=== PATIENT | female | born 1940 | race Caucasian/White ===

== ENCOUNTER 2021-12-11 11:15 | Outpatient (RCR) | payer OTHER, SELFPAY ==
--- NOTE | 2021-12-09 10:30 | PT.OIE ---
Current Diagnoses Dizziness and giddiness (12/09/21) History of falling (12/09/21) Visit Care Team Role Provider Type Sea Hicks DO Family Provider Non-Staff Primary Care Provider Specialty: Family Practice Address: [address] [place] [address], [phone] Email: Alfredo Yeboah MD Attending Provider Physician Referring Provider Specialty: Ear, Nose, Throat Address: [address] [place] [address], [id number] Email: [email or web address] Physical Therapy Initial Evaluation PT-OP-A Visit Information Start: 12/09/21 08:14 Freq: Status: Active Protocol: Document 12/09/21 10:18 AMB (Rec: 12/09/21 11:06 AMB [id number]) Out-Patient Physical Therapy Visit Information Visit Information Visit Type Initial Evaluation Visit Start Time 10:30 Visit Stop Time 11:15 Total Visit Minutes 45 Visit Number 1 PT-OP-B Current Condition Start: 12/09/21 08:14 Freq: Status: Active Protocol: Document 12/09/21 10:18 AMB (Rec: 12/09/21 11:06 AMB [id number]) Current Condition History of Current Condition Onset Date 6 months Current Complaints dizziness History of Current Condition Pt reports dizziness. Does show B arm tremor and festinating gait especially when walking through doorways. Does report seeing neurology but not currently on medication because had nightmares on it, and stopped going to see the neurologist. 3 falls in the last 6 months, not spinning as much now as she used to. Uses 4WW in the house, attends PT with a SPC. Lives alone, but son drove her today. Lives in a mobile home- 2 stairs to enter with a railing. Difficulty saying what causes dizziness. Getting up in the middle of the night sometimes. Verbalizes instances of freezing. Insulin is new to the patient. Treatment Goals Patient/Caregiver Goals Be more stable with mobility Prior Functional Status Baseline Function- ADL's Independent Baseline Function- Mobility Independent Personal Factors Other Personal Factors That May Effect Movement disorder symptoms Therapy/Recovery similar to Parkinsonism but not currently medicated: bilateral tremor, festinating gait, almost freezing symptoms , difficulty with memory seen at evaluation but not formally assessed. Glaucoma, HTN, hypothyroid, cardiac surgery history (3 stents). PT-OP-C Subjective Start: 12/09/21 08:14 Freq: Status: Active Protocol: Document 12/09/21 10:30 AMB (Rec: 12/09/21 13:01 AMB [id number]) Patient Questionnaires Dizziness Handicap Inventory DHI Score 34 DHI Functional Impairment 20 to 39% Impaired (Score 20- 39) PT-OP-E Functional Tests Start: 12/09/21 08:14 Freq: Status: Active Protocol: Document 12/09/21 10:30 AMB (Rec: 12/09/21 16:01 AMB [id number]) Functional Tests Dynamic Gait Index (DGI) Score 13 DGI Impairment Rating 40 to <60% Impaired (Score 10- 14) PT-OP-G Mobility & Gait Start: 12/09/21 08:14 Freq: Status: Active Protocol: Document 12/09/21 10:30 AMB (Rec: 12/09/21 16:01 AMB [id number]) OP Gait Assessment Comments Gait Comments Pt attends PT ambulating with SPC. When cued to walk fast she walks well, good step length, but when she walks around objects, walks backwards, or walks through doorways she has a shuffling gait pattern, almost freezing when walking through doorway, but was able to step over small adalberto with concentration. PT-OP-O Vestibular Start: 12/09/21 08:14 Freq: Status: Active Protocol: Document 12/09/21 10:30 AMB (Rec: 12/09/21 13:01 AMB [id number]) Vestibular Assessment Positional Testing [place]-Hallpike Negative Left,Negative Right Rolling Test Negative Left,Negative Right PT-OP-T Assessment and Plan Start: 12/09/21 08:14 Freq: Status: Active Protocol: Document 12/09/21 10:30 AMB (Rec: 12/09/21 16:01 AMB [id number]) Physical Therapy Assessment Rehab Potential Rehabilitation Potential Good Evaluation Complexity Number of Personal Factors/Comorbidities 3 or More Number of Body Systems Impaired 4 or More Clinical Presentation at Evaluation Evolving Impairments Impairments Balance,Functional Activities, Functional Mobility,Gait, Transfers Goals Three Impairment Safety Short Term Goal (STG) Keyonna will back up to a chair and sit down without freezing /festinating gait. STG Duration 4 weeks Marker Assembler Goal (LTG) Keyonna will ascend and descend 3 stairs with one rail with step to gait safely. LTG Duration 8 weeks Two Impairment Transfers Short Term Goal (STG) Keyonna will perform a supine to stand transfer to get out of bed without loss of balance . STG Duration 4 weeks One Impairment Gait Short Term Goal (STG) Keyonna will improve her DGI score to 18/24 or greater to show reduced risk of falling. STG Duration 4 weeks Marker Assembler Goal (LTG) Keyonna will ambulate with her SPC for 6 minutes without loss of balance. LTG Duration 8 weeks Assessment Summary Assessment Keyonna attends PT for dizziness. She specifically states it is not a nauseous or spinning dizziness. She does endorse at least 3 falls in the last 6 months. She states specifically that she does not have Parkinson's, but does state she was seen by a neurologist who put her on what sounds like carbidopa/ levodopa but she had night terrors on it and self d/jessika it and has not yet been back to see the neurologist. Her DGI score of 13/24 puts her at a high fall risk, as does her history of falling which sounds like is precipitated by an almost freezing episode. She did not have any signs of BPPV with supine roll testing or Channing-Hallpike testing. Further physical therapy will work on balance and fall reduction, as well as further evaluation of her mobility and falls. She was also encouraged to return to her PCP/neurologist for further neurological motor work up. Physical Therapy Plan Frequency and Duration Frequency of Treatment 2x/Week Duration of Treatment 8 weeks Plan of Care Start Date 12/09/21 Plan of Care End Date 02/03/22 Therapeutic Interventions Therapeutic Interventions Balance Training,Gait Training ,Home Exercise Program,Manual Therapy,Neuromuscular Re- education,Therapeutic Activities,Therapeutic Exercises,Vestibular Rehabilitation Next Visit Focus/Plan Next Note Type Treatment Note Next Visit Plan check foot sensation (diabetic ), check orthostatics (dizzy when getting up out of bed at night), Start working on amplitude of movement, safety with stairs, backing up to a chair safety
--- NOTE | 2021-12-09 13:27 | PT.OPPOC ---
Physical, Occupational & Speech Therapy At [facility] Current Diagnoses Dizziness and giddiness (12/09/21) History of falling (12/09/21) Visit Care Team Role Provider Type Sea Hicks DO Family Provider Non-Staff Primary Care Provider Specialty: Family Practice Address: [address] [place] [address], [phone] Email: Alfredo Yeboah MD Attending Provider Physician Referring Provider Specialty: Ear, Nose, Throat Address: [address] [place] [address], [id number] Email: [email or web address] Plan Of Care PT-OP-T Assessment and Plan Start: 12/09/21 08:14 Freq: Status: Active Protocol: Document 12/09/21 10:30 AMB (Rec: 12/09/21 16:01 AMB [id number]) Physical Therapy Assessment Rehab Potential Rehabilitation Potential Good Evaluation Complexity Number of Personal Factors/Comorbidities 3 or More Number of Body Systems Impaired 4 or More Clinical Presentation at Evaluation Evolving Impairments Impairments Balance,Functional Activities, Functional Mobility,Gait, Transfers Goals Three Impairment Safety Short Term Goal (STG) Keyonna will back up to a chair and sit down without freezing /festinating gait. STG Duration 4 weeks Mcc Goal (LTG) Keyonna will ascend and descend 3 stairs with one rail with step to gait safely. LTG Duration 8 weeks Two Impairment Transfers Short Term Goal (STG) Keyonna will perform a supine to stand transfer to get out of bed without loss of balance . STG Duration 4 weeks One Impairment Gait Short Term Goal (STG) Keyonna will improve her DGI score to 18/24 or greater to show reduced risk of falling. STG Duration 4 weeks Plumber Helper Goal (LTG) Keyonna will ambulate with her SPC for 6 minutes without loss of balance. LTG Duration 8 weeks Assessment Summary Assessment Keyonna attends PT for dizziness. She specifically states it is not a nauseous or spinning dizziness. She does endorse at least 3 falls in the last 6 months. She states specifically that she does not have Parkinson's, but does state she was seen by a neurologist who put her on what sounds like carbidopa/ levodopa but she had night terrors on it and self d/jessika it and has not yet been back to see the neurologist. Her DGI score of 13/24 puts her at a high fall risk, as does her history of falling which sounds like is precipitated by an almost freezing episode. She did not have any signs of BPPV with supine roll testing or [place]-Hallpike testing. Further physical therapy will work on balance and fall reduction, as well as further evaluation of her mobility and falls. She was also encouraged to return to her PCP/neurologist for further neurological motor work up. Physical Therapy Plan Frequency and Duration Frequency of Treatment 2x/Week Duration of Treatment 8 weeks Plan of Care Start Date 12/09/21 Plan of Care End Date 02/03/22 Therapeutic Interventions Therapeutic Interventions Balance Training,Gait Training ,Home Exercise Program,Manual Therapy,Neuromuscular Re- education,Therapeutic Activities,Therapeutic Exercises,Vestibular Rehabilitation Next Visit Focus/Plan Next Note Type Treatment Note Next Visit Plan check foot sensation (diabetic ), check orthostatics (dizzy when getting up out of bed at night), Start working on amplitude of movement, safety with stairs, backing up to a chair safety Plan of Care Dates Plan of Care Start Date 12/09/21 Plan of Care End Date 02/03/22 Electronically Signed by: Gypsy Escobar, PT 12/10/21 0466 Please Sign and Return: I have reviewed this Plan of Care and certify that the skilled therapy services above are required to meet the patient?s needs. Physician Signature Date Printed Name and Credentials Clinical Instructor Signature Printed Name and Credentials
--- NOTE | 2021-12-11 13:19 | PT.OTN ---
Current Diagnoses Dizziness and giddiness (12/11/21) History of falling (12/11/21) Physical Therapy Treatment Note PT-OP-A Visit Information Start: 12/09/21 08:14 Freq: Status: Active Protocol: Document 12/11/21 11:15 AMB (Rec: 12/11/21 13:18 AMB [id number]) Out-Patient Physical Therapy Visit Information Visit Information Visit Type Treatment Note Visit Start Time 11:15 Visit Stop Time 12:00 Total Visit Minutes 45 Visit Number 2 PT-OP-B Current Condition Start: 12/09/21 08:14 Freq: Status: Active Protocol: Document 12/09/21 10:18 AMB (Rec: 12/09/21 11:06 AMB [id number]) Current Condition History of Current Condition Onset Date 6 months Current Complaints dizziness History of Current Condition Pt reports dizziness. Does show B arm tremor and festinating gait especially when walking through doorways. Does report seeing neurology but not currently on medication because had nightmares on it, and stopped going to see the neurologist. 3 falls in the last 6 months, not spinning as much now as she used to. Uses 4WW in the house, attends PT with a SPC. Lives alone, but son drove her today. Lives in a mobile home- 2 stairs to enter with a railing. Difficulty saying what causes dizziness. Getting up in the middle of the night sometimes. Verbalizes instances of freezing. Insulin is new to the patient. Treatment Goals Patient/Caregiver Goals Be more stable with mobility Prior Functional Status Baseline Function- ADL's Independent Baseline Function- Mobility Independent Personal Factors Other Personal Factors That May Effect Movement disorder symptoms Therapy/Recovery similar to Parkinsonism but not currently medicated: bilateral tremor, festinating gait, almost freezing symptoms , difficulty with memory seen at evaluation but not formally assessed. Glaucoma, HTN, hypothyroid, cardiac surgery history (3 stents). PT-OP-C Subjective Start: 12/09/21 08:14 Freq: Status: Active Protocol: Document 12/11/21 11:15 AMB (Rec: 12/11/21 13:18 AMB [id number]) OP-PT Subjective Patient Comments Patient Comments Pt reports she had dizziness when her son was driving her home on Tuesday, otherwise is doing ok. PT-OP-E Functional Tests Start: 12/09/21 08:14 Freq: Status: Active Protocol: Document 12/09/21 10:30 AMB (Rec: 12/09/21 16:01 AMB [id number]) Functional Tests Dynamic Gait Index (DGI) Score 13 DGI Impairment Rating 40 to <60% Impaired (Score 10- 14) PT-OP-G Mobility & Gait Start: 12/09/21 08:14 Freq: Status: Active Protocol: Document 12/09/21 10:30 AMB (Rec: 12/09/21 16:01 AMB [id number]) OP Gait Assessment Comments Gait Comments Pt attends PT ambulating with SPC. When cued to walk fast she walks well, good step length, but when she walks around objects, walks backwards, or walks through doorways she has a shuffling gait pattern, almost freezing when walking through doorway, but was able to step over small adalberto with concentration. PT-OP-O Vestibular Start: 12/09/21 08:14 Freq: Status: Active Protocol: Document 12/09/21 10:30 AMB (Rec: 12/09/21 13:01 AMB [id number]) Vestibular Assessment Positional Testing Protem-Hallpike Negative Left,Negative Right Rolling Test Negative Left,Negative Right PT-OP-Q Treatments Start: 12/09/21 08:14 Freq: Status: Active Protocol: Document 12/11/21 11:15 AMB (Rec: 12/11/21 13:18 AMB [id number]) Neuro Re-Education Treatment Balance Activities Lateral stepping Details Chair for UE support Reps/Duration working on amplitude, UE movement Fwd stepping Details Chair for UE support Reps/Duration 10 Comments heavy cues for coordination Other Activities 1 Details Rechecked DixHallpike due to increased dizziness Comments pt again denies spinning dizziness but does report dizziness PT-OP-T Assessment and Plan Start: 12/09/21 08:14 Freq: Status: Active Protocol: Document 12/11/21 11:15 AMB (Rec: 12/11/21 13:18 AMB [id number]) Physical Therapy Assessment Goals Three Impairment Safety Short Term Goal (STG) Keyonna will back up to a chair and sit down without freezing /festinating gait. STG Duration 4 weeks Value Analysis Coordinator Goal (LTG) Keyonna will ascend and descend 3 stairs with one rail with step to gait safely. LTG Duration 8 weeks Two Impairment Transfers Short Term Goal (STG) Keyonna will perform a supine to stand transfer to get out of bed without loss of balance . STG Duration 4 weeks One Impairment Gait Short Term Goal (STG) Keyonna will improve her DGI score to 18/24 or greater to show reduced risk of falling. STG Duration 4 weeks Senior Care Goal (LTG) Keyonna will ambulate with her SPC for 6 minutes without loss of balance. LTG Duration 8 weeks Assessment Summary Assessment 154/77 seated, 146/70 standing . No dizziness with orthostatic check, but didn't check in supine. Pt had excellent light touch sensation throughout her bilateral feet. Started stepping/coordination exercises. Pt states blood sugars have been around 100 when she wakes up. Rechecked DixHallpike and again negative for any nystagmus. Physical Therapy Plan Next Visit Focus/Plan Next Note Type Treatment Note Next Visit Plan Start working on amplitude of movement, safety with stairs, backing up to a chair safety
--- NOTE | 2021-12-31 09:37 | PT-OP ANOTE ---
No show- called patient and left message asking her to call us back.
--- NOTE | 2022-01-06 08:10 | PT-OP ANOTE ---
Pt cancelled appt this am <24 hrs, has cardiology appt same time.
--- NOTE | 2022-01-12 13:08 | PT.OPDS ---
Current Diagnoses Dizziness and giddiness (12/11/21) History of falling (12/11/21) Visit Care Team Role Provider Type Sea Hicks DO Family Provider Non-Staff Primary Care Provider Specialty: Family Practice Address: [address] [place] [address], [phone] Email: Alfredo Yeboah MD Attending Provider Physician Referring Provider Specialty: Ear, Nose, Throat Address: [address] [place] [address], [phone] Email: [email or web address] Visit Number Visit Number 2 Discharge Summary PT-OP-B Current Condition Start: 12/09/21 08:14 Freq: Status: Active Protocol: Document 12/09/21 10:18 AMB (Rec: 12/09/21 11:06 AMB [id number]) Current Condition History of Current Condition Onset Date 6 months Current Complaints dizziness History of Current Condition Pt reports dizziness. Does show B arm tremor and festinating gait especially when walking through doorways. Does report seeing neurology but not currently on medication because had nightmares on it, and stopped going to see the neurologist. 3 falls in the last 6 months, not spinning as much now as she used to. Uses 4WW in the house, attends PT with a SPC. Lives alone, but son drove her today. Lives in a mobile home- 2 stairs to enter with a railing. Difficulty saying what causes dizziness. Getting up in the middle of the night sometimes. Verbalizes instances of freezing. Insulin is new to the patient. Treatment Goals Patient/Caregiver Goals Be more stable with mobility Prior Functional Status Baseline Function- ADL's Independent Baseline Function- Mobility Independent Personal Factors Other Personal Factors That May Effect Movement disorder symptoms Therapy/Recovery similar to Parkinsonism but not currently medicated: bilateral tremor, festinating gait, almost freezing symptoms , difficulty with memory seen at evaluation but not formally assessed. Glaucoma, HTN, hypothyroid, cardiac surgery history (3 stents). PT-OP-C Subjective Start: 12/09/21 08:14 Freq: Status: Active Protocol: Document 12/11/21 11:15 AMB (Rec: 12/11/21 13:18 AMB [id number]) OP-PT Subjective Patient Comments Patient Comments Pt reports she had dizziness when her son was driving her home on Tuesday, otherwise is doing ok. PT-OP-E Functional Tests Start: 12/09/21 08:14 Freq: Status: Active Protocol: Document 12/09/21 10:30 AMB (Rec: 12/09/21 16:01 AMB [id number]) Functional Tests Dynamic Gait Index (DGI) Score 13 DGI Impairment Rating 40 to <60% Impaired (Score 10- 14) PT-OP-G Mobility & Gait Start: 12/09/21 08:14 Freq: Status: Active Protocol: Document 12/09/21 10:30 AMB (Rec: 12/09/21 16:01 AMB [id number]) OP Gait Assessment Comments Gait Comments Pt attends PT ambulating with SPC. When cued to walk fast she walks well, good step length, but when she walks around objects, walks backwards, or walks through doorways she has a shuffling gait pattern, almost freezing when walking through doorway, but was able to step over small adalberto with concentration. PT-OP-O Vestibular Start: 12/09/21 08:14 Freq: Status: Active Protocol: Document 12/09/21 10:30 AMB (Rec: 12/09/21 13:01 AMB [id number]) Vestibular Assessment Positional Testing [place]-Hallpike Negative Left,Negative Right Rolling Test Negative Left,Negative Right PT-OP-T Assessment and Plan Start: 12/09/21 08:14 Freq: Status: Active Protocol: Document 01/12/22 13:06 AMB (Rec: 01/12/22 13:08 AMB [id number]) Physical Therapy Assessment Goals Three Impairment Safety Short Term Goal (STG) Keyonna will back up to a chair and sit down without freezing /festinating gait. STG Duration 4 weeks [facility] Goal (LTG) Keyonna will ascend and descend 3 stairs with one rail with step to gait safely. LTG Duration 8 weeks Two Impairment Transfers Short Term Goal (STG) Keyonna will perform a supine to stand transfer to get out of bed without loss of balance . STG Duration 4 weeks One Impairment Gait Short Term Goal (STG) Keyonna will improve her DGI score to 18/24 or greater to show reduced risk of falling. STG Duration 4 weeks Complaint Supervisor Goal (LTG) Keyonna will ambulate with her SPC for 6 minutes without loss of balance. LTG Duration 8 weeks Assessment Summary Assessment Keyonna attended PT for 2 visits. She was negative for BPPV, didn't have outright sx with orthostatic check. Has since cancelled or no showed all appointments. Would recommend PT for Parkinsons like symptoms in the future when she is ready for that. Physical Therapy Plan Discharge Physical Therapy Discharge Reasons No Longer Attending PT
== END 2022-01-13 14:22 | disposition home or self-care (01) ==
LOC: PHYS 11:15
PROVIDERS: Family Provider Family Medicine; PCP Family Medicine; Referring Provider Otolaryngology; Visit Provider Otolaryngology
DX: R42 Dizziness and giddiness (principal); Z91.81 History of falling
CPT/HCPCS: 97112; 97162

== ENCOUNTER → 2022-01-07 10:31 | Outpatient (CLI) | payer OTHER, SELFPAY ==
[2022-01-07 11:18] LABS: Hematocrit 37.7 % (36-46); Hemoglobin 12.7 g/dL (12.0-16.0); Mean Corpuscular HGB Conc 33.6 % (30-36); Mean Corpuscular Hemoglobin 30.6 PG (26-34); Platelet Count 216 X10^3/uL (150-400); Red Blood Cell Count 4.14 X10^6/uL (4.0-5.2); Red Cell Distribution Width 14.2 % (11.6-14.8); White Blood Cell Count 9.8 X10^3/uL (4.5-11.0)
[2022-01-07 11:29] LABS: Hemoglobin A1C% w Est Avg Glu 7.9 % (4.0-6.0)
[2022-01-07 11:34] LABS: Alanine Aminotransferase 20 IU/L (<35); Albumin 4.6 g/dL (3.5-5.0); Albumin Globulin Ratio 1.3 (1.0-2.8); Alkaline Phosphatase 89 U/L (38-126); Aspartate Aminotransferase 28 IU/L (14-36); Bilirubin Total 0.6 mg/dL (0.2-1.3); Blood Urea Nitrogen 38 mg/dL (7-17); Calcium 9.7 mg/dL (8.4-10.2); Carbon Dioxide 31 mmol/L (22-32); Chloride 101 mmol/L (98-107); Estimated Glomerular Filt Rate 56 mL/min (>60); Globulin 3.5 g/dL (1.7-4.1); Glucose 206 mg/dL (80-110); HEMOLYSIS < 15 (0-50); Potassium 4.2 mmol/L (3.4-5.1); Sodium 140 mmol/L (137-145); Total Protein 8.1 g/dL (6.3-8.2)
[2022-01-07 12:04] LABS: Thyroid Stimulating Hormone 1.81 uIU/mL (0.47-4.68)
== END ==
PROVIDERS: Family Provider Family Medicine; PCP Internal Medicine; Referring Provider Nurse Practitioner; Visit Provider Nurse Practitioner
DX: I10 Essential (primary) hypertension (principal); E11.9 Type 2 diabetes mellitus without complications; I48.0 Paroxysmal atrial fibrillation; I25.10 Atherosclerotic heart disease of native coronary artery without angina pectoris; R42 Dizziness and giddiness
CPT/HCPCS: 36415; 80053; 83036; 84443; 85027

== ENCOUNTER → 2022-02-20 10:40 | Outpatient (CLI) | payer OTHER, SELFPAY ==
--- NOTE | 2022-02-20 10:43 | DI.MRI.S_ITS ---
PROCEDURE: MR HEAD/BRAIN WO CON INDICATIONS: gait instability, tremor, r/o mass, CVA; Dizziness/giddiness TECHNIQUE: Non-contrast axial T1 spin echo, axial T2 fast spin echo, sagittal and axial FLAIR, coronal T2 fast spin echo, axial gradient echo, axial diffusion and ADC through the brain. COMPARISON: None. FINDINGS: Image quality: Excellent. CSF spaces: Ventricles appear symmetric in size and shape. Basal cisterns are patent. No extra-axial fluid collections. Brain: No intracranial bleeds or mass effects. There is mild cerebral volume loss for age. There are punctate foci of increased T2 signal in the periventricular and subcortical white matter tracks. A few lesions in the periventricular white matter have longitudinal orientation perpendicular to the long axis of the lateral ventricles. Small confluent focus of increased T2 signal noted in right parietal juxtacortical white matter. Brainstem appears normal. Diffusion-weighted images show no acute ischemic insults. No chronic ischemic insults. Normal intravascular flow voids are present. Skull and face: Calvarial bone marrow is normal in signal. Orbits are normal. Sinuses: Sinuses and mastoids are clear. IMPRESSION: 1. No areas of acute or chronic infarction. 2. No abnormal intracranial mass or mass effect. 3. Multiple foci of increased T2 signal involving periventricular and subcortical white matter tracks per majority of the lesions have imaging characteristics most suggestive of chronic microvascular ischemic change, however several of the periventricular white matter lesions and single right parietal juxtacortical lesion are suggestive of demyelinating process including multiple sclerosis. Please correlate with clinical data Dictated by: Yin Bettencourt MD, PhD on 02/22/2022 at 11:29 Approved by: Yin Bettencourt MD, PhD on 02/22/2022 at 11:36
== END ==
PROVIDERS: Family Provider Family Medicine; PCP Internal Medicine; Referring Provider Internal Medicine; Visit Provider Internal Medicine
DX: R42 Dizziness and giddiness (principal); G20 Parkinson's disease
CPT/HCPCS: 70551

== ENCOUNTER → 2022-06-04 07:14 | Outpatient (CLI) | payer OTHER, SELFPAY ==
[2022-06-04 08:44] LABS: Hemoglobin A1C% w Est Avg Glu 7.6 % (4.0-6.0)
[2022-06-04 09:07] LABS: BUN Creatinine Ratio 29.8 (6-22); Blood Urea Nitrogen 25 mg/dL (7-17); Calcium 9.4 mg/dL (8.4-10.2); Carbon Dioxide 31 mmol/L (22-32); Chloride 101 mmol/L (98-107); Cholesterol 104 mg/dL (140-199); Estimated Glomerular Filt Rate > 60 mL/min (>60); Glucose 135 mg/dL (80-110); HDL Cholesterol 39 mg/dL (40-60); HEMOLYSIS < 15 (0-50); LDL Cholesterol Calculated 47 mg/dL (<100); Potassium 4.3 mmol/L (3.4-5.1); Sodium 140 mmol/L (137-145); Triglycerides 89 mg/dL (35-150)
[2022-06-04 09:14] LABS: Creatinine Urine Random 118.5 mg/dL
[2022-06-04 09:18] LABS: Microalbumi Creatinin Ratio Ur 23.6 ug/mg CR (<30); Microalbumin Urine Random 2.8 mg/dL (0-1.6)
== END ==
PROVIDERS: Family Provider Family Medicine; PCP Internal Medicine; Referring Provider Internal Medicine; Visit Provider Internal Medicine
DX: E11.59 Type 2 diabetes mellitus with other circulatory complications (principal); I10 Essential (primary) hypertension; E78.2 Mixed hyperlipidemia
CPT/HCPCS: 36415; 80048; 80061; 82043; 82570; 83036

== ENCOUNTER → 2022-11-24 07:46 | Outpatient (CLI) | payer OTHER, SELFPAY ==
[2022-11-24 08:07] LABS: Hemoglobin A1C% w Est Avg Glu 7.8 % (4.0-6.0)
[2022-11-24 08:32] LABS: BUN Creatinine Ratio 36.9 (6-22); Blood Urea Nitrogen 31 mg/dL (7-17); Calcium 9.6 mg/dL (8.4-10.2); Carbon Dioxide 31 mmol/L (22-32); Chloride 101 mmol/L (98-107); Estimated Glomerular Filt Rate > 60 mL/min (>60); Glucose 104 mg/dL (80-110); Potassium 4.6 mmol/L (3.4-5.1); Sodium 140 mmol/L (137-145)
[2022-11-24 08:33] LABS: HEMOLYSIS 76 (0-50)
[2022-11-24 09:02] LABS: TSH w/ Reflex to FT4 1.06 uIU/mL (0.47-4.68)
== END ==
PROVIDERS: Family Provider Family Medicine; PCP Internal Medicine; Referring Provider Internal Medicine; Visit Provider Internal Medicine
DX: E11.59 Type 2 diabetes mellitus with other circulatory complications (principal); E03.9 Hypothyroidism, unspecified; I10 Essential (primary) hypertension
CPT/HCPCS: 36415; 80048; 83036; 84443

== ENCOUNTER → 2022-12-08 09:36 | Outpatient (CLI) | payer OTHER, SELFPAY ==
--- NOTE | 2022-12-08 09:40 | DI.RAD.S_ITS ---
PROCEDURE: XR LUMBAR SPINE 2-3V INDICATIONS: back pain, fall TECHNIQUE: 3 views of the lumbar spine were acquired. COMPARISON: None. FINDINGS: Bones: 5 [id number] vertebrae are present. There is normal bony alignment. No vertebral body compression fractures. No suspicious bony lesions. Multilevel disc space narrowing degenerative endplate changes. Facet hypertrophy is seen throughout the lumbar spine. Soft tissues: Overlying bowel gas pattern is normal. No suspicious soft tissue calcifications. Aortic atherosclerotic calcifications are present. IMPRESSION: No acute osseous abnormality. Moderate multilevel spondylosis. Lumbar spine MRI could be performed for further evaluation if indicated clinically. Approved by: Selvin Wynn M.D. on 12/08/2022 at 10:44
== END ==
PROVIDERS: Family Provider Family Medicine; PCP Internal Medicine; Referring Provider Internal Medicine; Visit Provider Internal Medicine
DX: S39.012A Strain of muscle, fascia and tendon of lower back, initial encounter (principal); M47.816 Spondylosis without myelopathy or radiculopathy, lumbar region; X58.XXXA Exposure to other specified factors, initial encounter
CPT/HCPCS: 72100

== ENCOUNTER → 2023-03-17 09:29 | Outpatient (CLI) | payer OTHER, SELFPAY ==
[2023-03-17 10:32] LABS: Appearance Urine UA CLEAR; Bilirubin Urine UA NEGATIVE (NEGATIVE); Color Urine UA YELLOW; Glucose Urine UA NEGATIVE (Negative); Ketones Urine UA NEGATIVE (NEGATIVE); Leukocyte Esterase Urine UA NEGATIVE (NEGATIVE); Nitrite Urine UA NEGATIVE (Negative); Occult Blood Urine UA NEGATIVE (Negative); Protein Urine UA NEGATIVE (Negative); Specific Gravity Urine UA <=1.005 (1.000-1.035); Urobilinogen Urine UA 0.2 E.U./dL (0.2)
[2023-03-17 10:38] LABS: Aspartate Aminotransferase 25 IU/L (14-36); BUN Creatinine Ratio 30.3 (6-22); Blood Urea Nitrogen 27 mg/dL (7-17); Calcium 9.3 mg/dL (8.4-10.2); Carbon Dioxide 31 mmol/L (22-32); Chloride 98 mmol/L (98-107); Cholesterol 112 mg/dL (140-199); Estimated Glomerular Filt Rate > 60 mL/min (>60); Glucose 152 mg/dL (80-110); HDL Cholesterol 44 mg/dL (40-60); HEMOLYSIS < 15 (0-50); LDL Cholesterol Calculated 47 mg/dL (<100); Potassium 4.2 mmol/L (3.4-5.1); Sodium 138 mmol/L (137-145); Triglycerides 105 mg/dL (35-150)
[2023-03-17 10:51] LABS: Bacteria Urine Occasional (0-1); Culture Indicated Urine Cult Not Indicated; RBC Urine None Seen (0-5/HPF); Squamous Epithelial Cell Urine 0-1 /HPF (0-5/HPF); WBC Urine 0-1/HPF (0-5/HPF)
[2023-03-18 06:35] LABS: x Labcorp Estim. Avg Glu (eAG) 177 mg/dL (.); x Labcorp Hemoglobin A1c 7.8 % (4.8-5.6)
== END ==
PROVIDERS: Family Provider Family Medicine; PCP Internal Medicine; Referring Provider Internal Medicine; Visit Provider Internal Medicine
DX: E11.59 Type 2 diabetes mellitus with other circulatory complications (principal); E78.2 Mixed hyperlipidemia; I10 Essential (primary) hypertension; R39.9 Unspecified symptoms and signs involving the genitourinary system
CPT/HCPCS: 36415; 80048; 80061; 81001; 83036; 84450

== ENCOUNTER → 2023-06-23 12:14 | Outpatient (CLI) | payer OTHER, SELFPAY ==
[2023-06-23 13:20] LABS: Hemoglobin A1C% w Est Avg Glu 7.6 % (4.0-6.0)
[2023-06-23 13:41] LABS: HEMOLYSIS < 15 (0-50); Potassium 4.6 mmol/L (3.4-5.1)
[2023-06-23 13:42] LABS: BUN Creatinine Ratio 26.8 (6-22); Blood Urea Nitrogen 30 mg/dL (7-17); Calcium 10.3 mg/dL (8.4-10.2); Carbon Dioxide 29 mmol/L (22-32); Chloride 99 mmol/L (98-107); Estimated Glomerular Filt Rate 48 mL/min (>60); Glucose 169 mg/dL (80-110); Sodium 137 mmol/L (137-145)
[2023-06-23 15:04] LABS: Microalbumi Creatinin Ratio Ur 32.9 ug/mg CR (<30); Microalbumin Urine Random 3.1 mg/dL (0-1.6)
== END ==
PROVIDERS: Family Provider Family Medicine; PCP Internal Medicine; Referring Provider Internal Medicine; Visit Provider Internal Medicine
DX: E11.59 Type 2 diabetes mellitus with other circulatory complications (principal); E78.2 Mixed hyperlipidemia
CPT/HCPCS: 36415; 80048; 82043; 82570; 83036

== ENCOUNTER → 2023-08-01 17:54 | Outpatient (CLI) | payer OTHER, SELFPAY ==
--- NOTE | 2023-08-01 17:55 | DI.RAD.S_ITS ---
PROCEDURE: XR KNEE RT 3V INDICATIONS: Right knee pain TECHNIQUE: 3 views of the knee were acquired. COMPARISON: None. FINDINGS: Bones: No fractures or dislocations. No suspicious bony lesions. Chondrocalcinosis. Tricompartmental joint space narrowing with associated osteophytosis. Soft tissues: Moderate joint effusion. No suspicious soft tissue calcifications. 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 Chondrocalcinosis, which can be seen in the setting of CPPD, aging, and parathyroid disorders. Dictated by: Uriah Adkins M.D. on 08/02/2023 at 9:39 Approved by: Uriah Adkins M.D. on 08/02/2023 at 9:41
== END ==
PROVIDERS: Family Provider Family Medicine; PCP Internal Medicine; Referring Provider Nurse Practitioner Family; Visit Provider Nurse Practitioner Family
DX: M17.11 Unilateral primary osteoarthritis, right knee (principal); M11.261 Other chondrocalcinosis, right knee; M25.561 Pain in right knee
CPT/HCPCS: 73562

== ENCOUNTER → 2023-12-13 09:24 | Outpatient (CLI) | payer OTHER, SELFPAY ==
[2023-12-13 11:16] LABS: Hemoglobin A1C% w Est Avg Glu 8.3 % (4.0-6.0)
[2023-12-13 11:37] LABS: BUN Creatinine Ratio 31.5 (6-22); Blood Urea Nitrogen 29 mg/dL (7-17); Calcium 9.7 mg/dL (8.4-10.2); Carbon Dioxide 30 mmol/L (22-32); Chloride 104 mmol/L (98-107); Estimated Glomerular Filt Rate > 60 mL/min (>60); Glucose 180 mg/dL (80-110); HEMOLYSIS < 15 (0-50); Potassium 4.7 mmol/L (3.4-5.1); Sodium 138 mmol/L (137-145)
[2023-12-13 12:02] LABS: TSH w/ Reflex to FT4 1.38 uIU/mL (0.47-4.68)
[2023-12-13 12:19] LABS: Vitamin B12 263 pg/mL (239-931)
== END ==
PROVIDERS: Family Provider Family Medicine; PCP Internal Medicine; Referring Provider Internal Medicine; Visit Provider Internal Medicine
DX: E11.59 Type 2 diabetes mellitus with other circulatory complications (principal); E03.9 Hypothyroidism, unspecified; E53.8 Deficiency of other specified B group vitamins
CPT/HCPCS: 36415; 80048; 82607; 83036; 84443

== ENCOUNTER → 2024-06-19 09:44 | Outpatient (CLI) | payer OTHER, SELFPAY ==
[2024-06-19 11:13] LABS: Aspartate Aminotransferase 25 IU/L (14-36); BUN Creatinine Ratio 24.3 (6-22); Blood Urea Nitrogen 25 mg/dL (7-17); Calcium 9.8 mg/dL (8.4-10.2); Carbon Dioxide 27 mmol/L (22-32); Chloride 105 mmol/L (98-107); Cholesterol 111 mg/dL (140-199); Estimated Glomerular Filt Rate 53 mL/min (>60); Glucose 200 mg/dL (80-110); HDL Cholesterol 41 mg/dL (40-60); HEMOLYSIS < 15 (0-50); LDL Cholesterol Calculated 52 mg/dL (<100); Potassium 4.2 mmol/L (3.4-5.1); Sodium 140 mmol/L (137-145); Triglycerides 91 mg/dL (35-150)
[2024-06-19 11:28] LABS: Hemoglobin A1C% w Est Avg Glu 8.4 % (4.0-6.0)
[2024-06-19 11:46] LABS: TSH w/ Reflex to FT4 0.86 uIU/mL (0.47-4.68)
[2024-06-19 12:05] LABS: Vitamin B12 > 1000 pg/mL (239-931)
== END ==
PROVIDERS: Family Provider Family Medicine; PCP Internal Medicine; Referring Provider Internal Medicine; Visit Provider Internal Medicine
DX: E11.59 Type 2 diabetes mellitus with other circulatory complications (principal); E03.9 Hypothyroidism, unspecified; E78.2 Mixed hyperlipidemia
CPT/HCPCS: 36415; 80048; 80061; 82607; 83036; 84443; 84450

== ENCOUNTER → 2024-10-03 16:04 | Outpatient (CLI) | payer OTHER, SELFPAY ==
[2024-10-03 16:24] LABS: Appearance Urine UA CLEAR; Bilirubin Urine UA NEGATIVE (NEGATIVE); Color Urine UA YELLOW; Glucose Urine UA NEGATIVE (Negative); Ketones Urine UA TRACE (NEGATIVE); Leukocyte Esterase Urine UA TRACE (NEGATIVE); Nitrite Urine UA POSITIVE (Negative); Occult Blood Urine UA NEGATIVE (Negative); Protein Urine UA NEGATIVE (Negative); Specific Gravity Urine UA >=1.030 (1.000-1.035); Urobilinogen Urine UA 0.2 E.U./dL (0.2)
[2024-10-03 16:33] LABS: RBC Urine None Seen (0-5/HPF); Urine Volume 10mL (spun)
[2024-10-03 16:34] LABS: Bacteria Urine Many (>30); Culture Indicated Urine Specimen Cultured; Mucus Urine 1+ (Negative); Squamous Epithelial Cell Urine 0-1 /HPF (0-5/HPF); WBC Urine 10-30/HPF (0-5/HPF)
== END ==
PROVIDERS: Family Provider Family Medicine; PCP Internal Medicine; Referring Provider Internal Medicine; Visit Provider Internal Medicine
DX: N30.00 Acute cystitis without hematuria (principal)
CPT/HCPCS: 81001; 87077; 87086; 87186

== ENCOUNTER → 2024-12-18 09:10 | Outpatient (CLI) | payer OTHER, SELFPAY ==
[2024-12-18 10:06] LABS: Appearance Urine UA CLEAR; Bilirubin Urine UA NEGATIVE (NEGATIVE); Color Urine UA YELLOW; Glucose Urine UA NEGATIVE (Negative); Ketones Urine UA NEGATIVE (NEGATIVE); Leukocyte Esterase Urine UA NEGATIVE (NEGATIVE); Nitrite Urine UA NEGATIVE (Negative); Occult Blood Urine UA NEGATIVE (Negative); Protein Urine UA TRACE (Negative); Urobilinogen Urine UA 0.2 E.U./dL (0.2)
[2024-12-18 10:16] LABS: Hemoglobin A1C% w Est Avg Glu 7.5 % (4.0-6.0)
[2024-12-18 10:25] LABS: Bacteria Urine None Seen; Culture Indicated Urine Cult Not Indicated; RBC Urine None Seen (0-5/HPF); Squamous Epithelial Cell Urine 1-5 /HPF (0-5/HPF); Urine Volume 10mL (spun); WBC Urine 0-1/HPF (0-5/HPF)
[2024-12-18 10:39] LABS: Creatinine Urine Random 67.16 mg/dL
[2024-12-18 10:47] LABS: Aspartate Aminotransferase 26 IU/L (14-36); BUN Creatinine Ratio 26.5 (6-22); Blood Urea Nitrogen 26 mg/dL (7-17); Calcium 10.3 mg/dL (8.4-10.2); Carbon Dioxide 31 mmol/L (22-32); Chloride 101 mmol/L (98-107); Estimated Glomerular Filt Rate 56 mL/min (>60); Glucose 183 mg/dL (80-110); HEMOLYSIS < 15 (0-50); Potassium 4.2 mmol/L (3.4-5.1); Sodium 141 mmol/L (137-145)
[2024-12-18 11:15] LABS: TSH w/ Reflex to FT4 1.76 uIU/mL (0.47-4.68)
== END ==
PROVIDERS: Family Provider Family Medicine; PCP Internal Medicine; Referring Provider Internal Medicine; Visit Provider Internal Medicine
DX: E11.59 Type 2 diabetes mellitus with other circulatory complications (principal); E03.9 Hypothyroidism, unspecified; I10 Essential (primary) hypertension; N39.0 Urinary tract infection, site not specified
CPT/HCPCS: 36415; 80048; 81001; 82043; 82570; 83036; 84443; 84450

== ENCOUNTER → 2025-05-14 08:45 | Outpatient (CLI) | payer OTHER, SELFPAY ==
--- NOTE | 2025-06-12 12:39 | DIAB.MNT ---
Initial Diabetes Medical Nutrition Therapy Assessment Name: Keyonna Conte Date: 05/14/25 Time: 9-10a Dx: Type II Diabetes Provider: Colt Keyonna presents for initial Dm visit. Dx in her 50s per report. Endorses some lows, feels sweaty. CGM reports also show some excessive lows. Sees PCP day of this visit and RD messaged PCP regarding lows. Keeps hard candies in her pocket for lows. States CGM may need additional adhesive. Diet Recall: 7a: zero CHO yogurt with 1/2c cheerios and OJ +/- half peach or banana 12p: soup 1/2 can (chx noodles or durham) OR salad with chx and dried cran 530p: turkey burger with yam and spinach with cheese OR fish with sweet potato fries handful and peas, broccoli or sánchez beans HS: cereal x 1c corn chex with yogurt or almond milk. water 3 x16.9 Loves rice but avoids it. Anthropometrics: Ht: 67 Wt: 181# Weight history: Physical Activity: sit n be fit program daily, use to do more but fell in November. Was doing PT before. Self-Monitoring Blood Glucose: FSL CGM use. TIR mostly in goal with excessive time low. TIR: 1% very high 12% high 84% in range 3% low 0% very low avmg/dl GMI: 6.5% variance: 31.6% Date Pre Post Pre Post Pre Post HS Diabetes Medications: 2mg Glimepiride BID 7u Glargine 1000mg Metformin BID Pertinent Labs: HgA1c; 7.5% 12/2024 Past Medical History: (Last Updated 05/14/25 @ 12:06 by Alexey Gregory MD) Acquired hypothyroidism Chicken pox Cobalamin deficiency 263 on 12/13/2023 Coronary artery disease Do not resuscitate Essential hypertension Gait instability Glaucoma Measles Mixed hyperlipidemia Occipital neuralgia Parkinsons disease Plantar warts Primary osteoarthritis involving multiple joints Recurrent UTI Slow transit constipation 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 Provided appropriate educational handouts. Discussed the following topics: Completed intake assessment. Recommended servings for carbohydrates at meals and snacks Treating lows Medication management to reduce lows and encouraged discussion with PCP today Brainstormed appropriate meal/snack ideas based on food preferences Role of physical activity CGM adhesives Created SMART goals for patient self-care and success. Goals: Try brown rice in moderation Ask daughter to help find FSL3+ adhesives discussed Skip juice at breakfast Follow-up: JEFF JAMA follow-up in 4-6 weeks Hermelinda George RDN, [place] Certified Diabetes Care and Safety Aide P: [phone] Thank you for this referral
== END ==
PROVIDERS: Family Provider Family Medicine; PCP Internal Medicine; Referring Provider Internal Medicine
DX: E11.9 Type 2 diabetes mellitus without complications (principal); Z71.3 Dietary counseling and surveillance; Z79.84 Long term (current) use of oral hypoglycemic drugs; Z79.4 Long term (current) use of insulin
CPT/HCPCS: 97802

== ENCOUNTER → 2025-07-09 07:42 | Outpatient (CLI) | payer OTHER, SELFPAY ==
--- NOTE | 2025-07-09 08:14 | DIAB.FU ---
Follow-up Diabetes Education Assessment Name: Keyonna Conte Date: 07/09/25 Time: 805-840am Dx: Type II Diabetes Provider: Colt Ways presents for follow-up Dm visit. Dx in her 50s per report. Rx'd Ozempic. d/c of glimepiride. No longer having lows. Plans to d/c insulin and start GLP1, but has questions about GLP1 storage, dosing, injection technique, and side effects. has read medication insert per report. Plans to start on a Tuesday when her family is around. Eating 3-4x per day. Tried brown rice in moderation. Got FSL adhesives. D/c of juice at breakfast. Has had wt loss over 5 months of 8# = 4%. Anthropometrics: 173# 05/2025 Ht: 67 Wt: 181# 12/2024 Physical Activity: sit n be fit program daily, use to do more but fell in November. Was doing PT before. Self-Monitoring Blood Glucose: FSL CGM use. TIR showing some increase in elevations, likely r/t d/c of glimepiride; however also significant d/c of hypoglcyemia. Current plan of adding GLP1 and d/c of insulin should improve BG. TIR: 2% very high 23% high 75% in range 0% low 0% very low avmg/dl GMI: 7% variance: 26% Last TIR: 1% very high 12% high 84% in range 3% low 0% very low avmg/dl GMI: 6.5% variance: 31.6% Diabetes Medications: 2mg Glimepiride BID---- d/c 7u Glargine-- 6u 1000mg Metformin BID 0.25mg Ozempic--- not yet started Pertinent Labs: HgA1c; 7.5% 12/2024 Past Medical History: (Last Updated 05/14/25 @ 12:06 by Alexey Gregory MD) Acquired hypothyroidism Chicken pox Cobalamin deficiency 263 on 12/13/2023 Coronary artery disease Do not resuscitate Essential hypertension Gait instability Glaucoma Measles Mixed hyperlipidemia Occipital neuralgia Parkinsons disease Plantar warts Primary osteoarthritis involving multiple joints Recurrent UTI Slow transit constipation 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 Provided appropriate educational handouts. Discussed the following topics: GLP1: storage, dosing, injection technique and demo, side effects, precautions, benefits Encouraged continued eating 3-4 occurrences per day Created SMART goals for patient self-care and success. Goals: Try brown rice in moderation- met Ask daughter to help find FSL3+ adhesives discussed- met Skip juice at breakfast - met Start Ozempic Tuesday and take weekly- new Eat 3-4x per day- continued Follow-up: JEFF JAMA follow-up in 3-4 weeks Hermelinda George RDN, [place] Certified Diabetes Care and Movement Education Specialist P: [phone] Thank you for this referral
== END ==
LOC: DIET 07:43
PROVIDERS: PCP Internal Medicine; Referring Provider Internal Medicine
DX: E11.649 Type 2 diabetes mellitus with hypoglycemia without coma (principal); Z79.4 Long term (current) use of insulin; Z71.3 Dietary counseling and surveillance; Z79.84 Long term (current) use of oral hypoglycemic drugs
CPT/HCPCS: G0108

== ENCOUNTER → 2025-08-12 08:20 | Outpatient (CLI) | payer OTHER, SELFPAY ==
[2025-08-12 09:04] LABS: Blood Urea Nitrogen 34 mg/dL (7-17); Calcium 9.8 mg/dL (8.4-10.2); Carbon Dioxide 28 mmol/L (22-32); Chloride 102 mmol/L (98-107); Estimated Glomerular Filt Rate 57 mL/min (>60); Glucose 163 mg/dL (70-99); HEMOLYSIS < 15 (0-50); Potassium 4.0 mmol/L (3.4-5.1); Sodium 142 mmol/L (137-145)
[2025-08-12 09:27] LABS: Hemoglobin A1C% w Est Avg Glu 7.5 % (4.0-6.0)
== END ==
PROVIDERS: PCP Internal Medicine; Referring Provider Internal Medicine; Visit Provider Internal Medicine
DX: E11.29 Type 2 diabetes mellitus with other diabetic kidney complication (principal); R80.9 Proteinuria, unspecified
CPT/HCPCS: 36415; 80048; 83036